=== PATIENT | male | born 1990 | race Caucasian/White ===

== ENCOUNTER 2016-08-13 11:56 | Emergency (ER) | payer OTHER ==
[2016-08-13 14:05] VITALS: BP 148/67
== END 2016-08-13 14:05 | disposition home or self-care (01) ==
LOC: ED 11:56
DX: T40.1X1A Poisoning by heroin, accidental (unintentional), initial encounter (principal); Y92.89 Other specified places as the place of occurrence of the external cause; Z86.19 Personal history of other infectious and parasitic diseases